=== PATIENT | male | born 1990 | race Two or more races ===

== ENCOUNTER 2017-08-24 12:25 | Emergency (ER) | payer OTHER ==
--- NOTE | 2017-08-24 13:50 | EDPHY ---
H & P Time Seen by Provider: 08/24/17 12:50 HPI/ROS: CHIEF COMPLAINT: Left eye injury HISTORY OF PRESENT ILLNESS: 26-year-old male presents to the emergency department with left eye injury. The patient was at work and a height hit him in his active eye glasses and cut him in his left lower eyelid. The incident happened just prior to arrival. Unsure of his last tetanus shot. No visual changes. No headache. No chest pain or difficulty breathing. He is also complaining of some pain in his left cheek bone. Denies dental injury or malocclusion. No neck or back pain. REVIEW OF SYSTEMS: Constitutional: No fever, no chills. Eyes: No double or blurry vision. ENT: No sore throat. Respiratory: No cough, no shortness of breath. Cardiac: No chest pain. Gastrointestinal: No abdominal pain, vomiting or diarrhea. Genitourinary: No dysuria. Musculoskeletal: No neck or back pain. Skin: No rashes. Neurological: No headache. Past Medical/Surgical History: Negative Social History: Single Smoking Status: Never smoked Physical Exam: General Appearance: Alert, no distress. Eyes: Pupils equal and round. Extraocular motions are all intact. No subconjunctival hemorrhage noted. No excessive tearing. Patient has a 2 cm laceration just below the left eye. It does not extend into the last border. Does not extend into the left eye. ENT: Mouth: Mucous membranes moist. Respiratory: No wheezing, rhonchi, or rales, lungs are clear to auscultation. Cardiovascular: Regular rate and rhythm. Gastrointestinal: Abdomen is soft and nontender, no masses, no rebound or guarding, bowel sounds normal. Neurological: Alert and oriented x 3, cranial nerves II through XII grossly intact Skin: Warm and dry, no rashes. Musculoskeletal: Nontender to palpate along the cervical, thoracic or lumbar spine. Neck is supple. Extremities: Full range of motion and no peripheral edema. Psychiatric: Patient is oriented X 3, there is no agitation. Constitutional: Initial Vital Signs Temperature (C) 36.6 C 08/24/17 12:28 Heart Rate 65 08/24/17 12:28 Respiratory Rate 16 08/24/17 12:28 Blood Pressure 133/89 H 08/24/17 12:28 O2 Sat (%) 99 08/24/17 12:28 O2 Delivery Mode Room Air Allergies/Adverse Reactions: No Known Allergies Allergy (Unverified 08/24/17 12:28) Home Medications: Medication Instructions Recorded NK [No Known Home Meds] 08/24/17 Medical Decision Making - Diagnostics Imaging Results: Imaging Impressions Internal Auditory Canal CT 08/24/17 13:04 Impression: 1. Soft tissue irregularity inferolateral aspect of the left orbit along the inferior eyelid with adjacent soft tissue swelling but no evidence of fracture. Findings discussed with Pita Vizcaino PA-C at 13:44 hour, 08/24/2017. Imaging: Discussed imaging studies w/ professional services manager Radiologist Procedures: Laceration repair. Verbal consent was obtained from the patient. The 2 cm laceration on the left lower eyelid was anesthetized using 1% lidocaine with epinephrine. The wound was irrigated with saline, draped and explored to its base with a gloved finger. There were no deep structures involved. The wound was repaired with 7 0 Prolene, 6 sutures. The wound repair was simple. The procedure was performed by myself. ED Course/Re-evaluation: 26-year-old male presents to the emergency department left eye injury. Patient had CT imaging of his facial bones to exclude zygomatic arch or inferior orbital fracture. This was negative. His laceration was repaired, see procedure note. Tetanus shot was updated. Patient would like to return to work. Departure - Departure Disposition: Home, Routine, Self-Care Clinical Impression: Eyelid laceration, left Qualifiers: Encounter type: initial encounter Qualified Code(s): S01.112A - Laceration without foreign body of left eyelid and periocular area, initial encounter Facial contusion Qualifiers: Encounter type: initial encounter Qualified Code(s): S00.83XA - Contusion of other part of head, initial encounter Condition: Good Instructions: Care For Your Stitches (ED), Laceration (ED), Acute Wounds (ED) Additional Instructions: Wound Care Follow-Up: Removal of sutures in 5 days. Suture removal is complimentary in uncomplicated cases. Infection or abnormal findings would require reevaluation by the MD. In that case, you may be billed. Cool compresses. Ibuprofen 600 mg every 8 hr as needed for pain. Activity as tolerated. You have been released back to work. Referrals: Work Comp Ref/Restrictions [Outside] - As per Instructions
[2017-08-24 13:55] VITALS: BP 146/82; PULSE 64; RESP 18; TEMP 98.6; O2SAT 98
== END 2017-08-24 13:56 | disposition home or self-care (01) ==
PROC: 08QRXZZ Repair Left Lower Eyelid, External Approach (ICD-10-PCS; principal; 2017-08-24)
DX: S01.112A Laceration without foreign body of left eyelid and periocular area, initial encounter (principal); W25.XXXA Contact with sharp glass, initial encounter; Y92.69 Other specified industrial and construction area as the place of occurrence of the external cause; Y99.0 Civilian activity done for income or pay; Y93.89 Activity, other specified